=== PATIENT | female | born 1985 | race Caucasian/White ===

== ENCOUNTER 2018-05-10 15:50 | Inpatient (IN) | payer BC, OTHER ==
[~2018-05-10] VITALS: Ht 162.6 cm; Wt 40.8 kg
[~2018-05-10 15:50] MED LIST: Acetaminophen PO; CHLO25CA22 PO; FAMO-132 PO; Folic Acid PO; MULT-24 PO; THIA100T13 PO
[2018-05-10] MEDS ORDERED: LAMO100T2 PO (17:51)
[2018-05-10 17:53] LABS: *URINE HCG, QUAL NEGATIVE (NEGATIVE)
[2018-05-10] MEDS: MULTIVITAMINS,THERAPEUTIC TABLET PO SCH (18:00)
[2018-05-10] MEDS ORDERED: CLONIDINE HCL 0.1 MG TABLET PO PRN (18:00)
[2018-05-10] MEDS: THIAMINE HCL 100 MG TABLET PO SCH (18:00)
[2018-05-10] MEDS ORDERED: MAG HYDROX/AL HYDROX/SIMETH 30 ML LIQUID UDC PO PRN (18:00)
[2018-05-10] MEDS ORDERED: LORAZEPAM 2 MG/1 ML VIAL IM PRN (18:00)
[2018-05-10] MEDS ORDERED: LOPERAMIDE HCL 2 MG CAPSULE PO PRN ×2 (18:00)
[2018-05-10] MEDS: FOLIC ACID 1 MG TABLET PO SCH (18:00)
[2018-05-10] MEDS ORDERED: HYDROXYZINE PAMOATE 25 MG CAPSULE PO PRN (18:00)
[2018-05-10] MEDS ORDERED: IBUPROFEN 600 MG TABLET PO PRN (18:00)
[2018-05-10] MEDS ORDERED: ACETAMINOPHEN 325 MG TABLET PO PRN (18:00)
[2018-05-10] MEDS ORDERED: DIAZEPAM 10 MG TABLET PO PRN ×2 (18:00)
[2018-05-10] MEDS ORDERED: MIRALAX 17 GM POWD.PACK PO PRN (18:00)
[2018-05-10] MEDS ORDERED: ONDANSETRON 4 MG/2 ML VIAL IM PRN (18:00)
[2018-05-10] MEDS ORDERED: THIAMINE HCL 200 MG/2 ML VIAL IM ONE (18:00)
[2018-05-10] MEDS ORDERED: ONDANSETRON ODT 4 MG TAB.RAPDIS SL PRN (18:00)
[2018-05-10] MEDS ORDERED: DIAZEPAM 5 MG TABLET PO PRN (18:00)
[2018-05-10] MEDS ORDERED: MAGNESIUM HYDROXIDE 30 ML LIQUID UDC PO PRN (18:00)
[2018-05-10] MEDS: ENSURE WITH FIBER 237 ML LIQUID (CHOCOLATE) PO SCH (18:00)
[2018-05-10] MEDS ORDERED: THIAMINE HCL 100 MG TABLET PO SCH (18:15)
[2018-05-10] MEDS ORDERED: MULTIVITAMINS,THERAPEUTIC TABLET PO SCH (18:15)
[2018-05-10] MEDS ORDERED: Medication Not On Formulary EA ([Acetaminophen] 650 MG) PO PRN (18:15)
[2018-05-10] MEDS ORDERED: Medication Not On Formulary EA ([Folic Acid] 1 MG) PO SCH (18:15)
[2018-05-10 18:18] LABS: *AMPHETAMINE, URINE NEGATIVE (NEGATIVE); *BARBITURATE, URINE POSITIVE (NEGATIVE); *CANNABINOID, URINE NEGATIVE (NEGATIVE); *COCCAINE, URINE NEGATIVE (NEGATIVE); *OPIATE, URINE NEGATIVE (NEGATIVE); *PHENCYCLIDINE SCREEN,URINE NEGATIVE (NEGATIVE)
[2018-05-10 20:00] VITALS: BP 107/68
[2018-05-10] MEDS ORDERED: IV NORMAL SALINE 500 ML IV ONE (20:00)
[2018-05-10] MEDS: LAMOTRIGINE 100 MG TABLET PO SCH (22:21)
[2018-05-10 23:47] LABS: BASOPHILS % (AUTO) 0.5 % (0.0-2.0); EOSINOPHILS % (AUTO) 0.5 % (0.0-7.0); HEMATOCRIT 39.4 % (31.2-41.9); HEMOGLOBIN 13.6 g/dL (10.9-14.3); LYMPHOCYTES % (AUTO) 43.3 % (20.5-51.5); MEAN CORPUSCULAR HEMOGLOBIN 29.9 uug (24.7-32.8); MEAN CORPUSCULAR HGB CONC 35 g/dL (32.3-35.6); MEAN CORPUSCULAR VOLUME 86.3 fL (75.5-95.3); MONOCYTES # (AUTO) 0.5 K/uL (2.0-10.0); MONOCYTES % (AUTO) 11.6 % (0.0-11.0); NEUTROPHILS % (AUTO) 44.1 % (38.5-71.5); PLATELET COUNT (AUTO) 207 K/uL (179-408); RED BLOOD CELL COUNT(AUTO) 4.56 MIL/uL (3.63-4.92); WHITE BLOOD COUNT (AUTO) 4.6 K/uL (3.8-11.8)
[2018-05-11] VITALS: BP 112/77
[2018-05-11 00:03] LABS: CREATININE 0.8 mg/dL (0.6-1.3); POTASSIUM 2.9 mmol/L (3.5-5.1)
[2018-05-11 00:04] LABS: BILIRUBIN,TOTAL 0.7 mg/dL (0.2-1.0); MAGNESIUM 1.7 mg/dL (1.8-2.4); TOTAL PROTEIN, SERUM 9.1 g/dL (6.4-8.2)
[2018-05-11 00:12] LABS: THYROID STIMULATING HORMONE 0.519 mIU/mL (0.358-3.740)
[2018-05-11] MEDS ORDERED: POTASSIUM CHLORIDE 20 MEQ TAB.PRT.SR PO ONE (00:30)
[2018-05-11] MEDS ORDERED: MAGNESIUM OXIDE 400 MG TABLET PO ONE (00:30)
[2018-05-11] MEDS: diphenhydrAMINE 50 MG CAPSULE PO PRN ×2 (01:18→21:37)
[2018-05-11] MEDS: ENSURE WITH FIBER 237 ML LIQUID (CHOCOLATE) PO SCH ×3 (08:00→17:00)
[2018-05-11 08:54] VITALS: BP 106/78
[2018-05-11] MEDS: LAMOTRIGINE 100 MG TABLET PO SCH ×2 (08:57→21:37)
[2018-05-11] MEDS: THIAMINE HCL 100 MG TABLET PO SCH (08:58)
[2018-05-11] MEDS: FOLIC ACID 1 MG TABLET PO SCH (08:58)
[2018-05-11] MEDS: MULTIVITAMINS,THERAPEUTIC TABLET PO SCH (08:58)
[2018-05-11] MEDS: FAMOTIDINE 20 MG TABLET PO SCH (08:58)
[2018-05-11] MEDS ORDERED: TUBERCULIN,PURIF.PROT.DERIV. 5 TU/0.1 ML TEST ID ONE (09:00)
[2018-05-11] MEDS ORDERED: 3 DAY TAPER OF VALIUM-SERENITY PROTOCOL PO PRN (11:15)
[2018-05-11 12:20] VITALS: BP 97/72
[2018-05-11 13:32] LABS: BILIRUBIN,TOTAL 0.9 mg/dL (0.2-1.0); CREATININE 0.7 mg/dL (0.6-1.3); MAGNESIUM 1.8 mg/dL (1.8-2.4); POTASSIUM 4.3 mmol/L (3.5-5.1); TOTAL PROTEIN, SERUM 7.2 g/dL (6.4-8.2)
[2018-05-11] MEDS: DIAZEPAM 5 MG TABLET PO SCH ×2 (15:00→21:00)
[2018-05-11 16:00] VITALS: BP 127/87
[2018-05-11 20:09] VITALS: BP 108/66
[2018-05-12] VITALS: BP 118/85
[2018-05-12 08:00] VITALS: BP 114/76
[2018-05-12] MEDS: ENSURE WITH FIBER 237 ML LIQUID (CHOCOLATE) PO SCH ×2 (08:00→12:00)
[2018-05-12 08:07] LABS: HEPATITIS B SURFACE AG Negative (Negative)
[2018-05-12] MEDS ORDERED: DIAZEPAM 5 MG TABLET PO SCH (09:00)
[2018-05-12] MEDS: MULTIVITAMINS,THERAPEUTIC TABLET PO SCH (09:00)
[2018-05-12] MEDS: FAMOTIDINE 20 MG TABLET PO SCH (09:00)
[2018-05-12] MEDS: LAMOTRIGINE 100 MG TABLET PO SCH (09:02)
[2018-05-12] MEDS: THIAMINE HCL 100 MG TABLET PO SCH (09:02)
[2018-05-12] MEDS: FOLIC ACID 1 MG TABLET PO SCH (09:02)
[2018-05-12 12:00] VITALS: BP 134/97
[2018-05-12 16:00] VITALS: BP 92/55
[2018-05-13] MEDS ORDERED: DIAZEPAM 5 MG TABLET PO SCH (09:00)
== END 2018-05-12 17:02 | disposition home or self-care (01) | DRG 895 ==
LOC: SRC 15:50
PROVIDERS: ADMIT Family Medicine Addiction Medicine; ATTEND Family Medicine Addiction Medicine
PROC: HZ2ZZZZ Detoxification Services for Substance Abuse Treatment (ICD-10-PCS; principal; 2018-05-10)
PROC: HZ31ZZZ Individual Counseling for Substance Abuse Treatment, Behavioral (ICD-10-PCS; 2018-05-11)
PROC: HZ41ZZZ Group Counseling for Substance Abuse Treatment, Behavioral (ICD-10-PCS; 2018-05-11)
DX: F10.230 Alcohol dependence with withdrawal, uncomplicated (principal); G40.509 Epileptic seizures related to external causes, not intractable, without status epilepticus; F50.00 Anorexia nervosa, unspecified; F50.2 Bulimia nervosa; F31.81 Bipolar II disorder; Y90.6 Blood alcohol level of 120-199 mg/100 ml; R00.0 Tachycardia, unspecified; F41.1 Generalized anxiety disorder; E87.6 Hypokalemia; E83.42 Hypomagnesemia; E16.2 Hypoglycemia, unspecified; R74.0 Nonspecific elevation of levels of transaminase and lactic acid dehydrogenase [LDH]
CPT/HCPCS: 36415; 70030-TC; 80307; 80345; 80346; 83690; 83735; 84100; 84443; 84703; 85025; 86580; 86592; 86705; 86803; 87340; 87806; 93005; A4663; G0480; J7040; Q0163

== ENCOUNTER 2018-06-07 14:55 | Inpatient (IN) | payer MEDICARE, BC, OTHER ==
[~2018-06-07] VITALS: Ht 162.6 cm; Wt 43.5 kg
[~2018-06-07 14:55] MED LIST changes: -CHLO25CA22 PO; -FAMO-132 PO; +LAMO100T2 PO
[2018-06-08 08:30] VITALS: BP 104/69
[2018-06-08] MEDS: THIAMINE HCL 100 MG TABLET PO SCH (09:30)
[2018-06-08] MEDS ORDERED: MIRALAX 17 GM POWD.PACK PO PRN (09:30)
[2018-06-08] MEDS ORDERED: IBUPROFEN 600 MG TABLET PO PRN (09:30)
[2018-06-08] MEDS ORDERED: LORAZEPAM 2 MG/1 ML VIAL IM PRN (09:30)
[2018-06-08] MEDS ORDERED: ONDANSETRON ODT 4 MG TAB.RAPDIS SL PRN (09:30)
[2018-06-08] MEDS ORDERED: THIAMINE HCL 200 MG/2 ML VIAL IM ONE (09:30)
[2018-06-08] MEDS: MULTIVITAMINS,THERAPEUTIC TABLET PO SCH (09:30)
[2018-06-08] MEDS ORDERED: MAGNESIUM HYDROXIDE 30 ML LIQUID UDC PO PRN (09:30)
[2018-06-08] MEDS ORDERED: LOPERAMIDE HCL 2 MG CAPSULE PO PRN ×2 (09:30)
[2018-06-08] MEDS ORDERED: MAG HYDROX/AL HYDROX/SIMETH 30 ML LIQUID UDC PO PRN (09:30)
[2018-06-08] MEDS ORDERED: ACETAMINOPHEN 325 MG TABLET PO PRN (09:30)
[2018-06-08] MEDS ORDERED: diphenhydrAMINE 50 MG CAPSULE PO PRN (09:30)
[2018-06-08] MEDS ORDERED: ONDANSETRON 4 MG/2 ML VIAL IM PRN (09:30)
[2018-06-08] MEDS ORDERED: LORAZEPAM 0.5 MG TABLET PO PRN (09:30)
[2018-06-08] MEDS: FOLIC ACID 1 MG TABLET PO SCH (10:16)
[2018-06-08] MEDS: LEVETIRACETAM 500 MG TABLET PO SCH ×2 (10:16→20:44)
[2018-06-08] MEDS: LORAZEPAM 0.5 MG TABLET PO PRN ×2 (10:16→12:36)
[2018-06-08 12:00] VITALS: BP 121/76
[2018-06-08] MEDS ORDERED: 5 DAY TAPER OF LORAZEPAM -SERENITY PROTOCOL PO PRN (12:30)
[2018-06-08 13:05] LABS: BASOPHILS % (AUTO) 0.3 % (0.0-2.0); EOSINOPHILS % (AUTO) 0.3 % (0.0-7.0); LYMPHOCYTES # (AUTO) 0.9 K/uL (20.0-40.0); LYMPHOCYTES % (AUTO) 24.2 % (20.5-51.5); MEAN CORPUSCULAR HEMOGLOBIN 30.6 uug (24.7-32.8); MEAN CORPUSCULAR HGB CONC 34 g/dL (32.3-35.6); MEAN CORPUSCULAR VOLUME 88.9 fL (75.5-95.3); MONOCYTES # (AUTO) 0.2 K/uL (2.0-10.0); MONOCYTES % (AUTO) 4.4 % (0.0-11.0); NEUTROPHILS # (AUTO) 2.5 K/uL (1.8-8.9); NEUTROPHILS % (AUTO) 70.8 % (38.5-71.5); RED BLOOD CELL COUNT(AUTO) 3.47 MIL/uL (3.63-4.92)
[2018-06-08 13:08] LABS: HEMOGLOBIN 10.6 g/dL (10.9-14.3); WHITE BLOOD COUNT (AUTO) 3.5 K/uL (3.8-11.8)
[2018-06-08 13:09] LABS: HEMATOCRIT 30.8 % (31.2-41.9); PLATELET COUNT (AUTO) 82 K/uL (179-408)
[2018-06-08 13:15] LABS: ALANINE AMINOTRANSFERASE 57 U/L (14-59); ALKALINE PHOSPHATASE 72 U/L (50-136); AMYLASE 74 U/L (25-115); ASPARTATE AMINOTRANSFERASE 118 U/L (15-37); BILIRUBIN,TOTAL 0.8 mg/dL (0.2-1.0); CARBON DIOXIDE 27 mmol/L (21-32); CHLORIDE 96 mmol/L (98-107); CREATININE 0.7 mg/dL (0.6-1.3); ETHANOL < 3 MG/DL (0-0); GLUCOSE 101 mg/dL (74-106); LIPASE 164 U/L (73-393); MAGNESIUM 1.6 mg/dL (1.8-2.4); POTASSIUM 3.5 mmol/L (3.5-5.1); TOTAL PROTEIN, SERUM 7.2 g/dL (6.4-8.2); UREA NITROGEN, BLOOD 11 mg/dL (7-18)
[2018-06-08 13:26] LABS: THYROID STIMULATING HORMONE 1.499 mIU/mL (0.358-3.740)
[2018-06-08 13:38] LABS: BAND % (MANUAL) 2 % (0-10); LYMPHOCYTES % (MANUAL) 21 % (20-40); MONOCYTES % (MANUAL) 4 % (2-10); NEUTROPHILS % (MANUAL) 73 % (42-75)
[2018-06-08] MEDS ORDERED: MAGNESIUM OXIDE 400 MG TABLET PO ONE (14:15)
[2018-06-08 14:38] LABS: *URINE HCG, QUAL NEGATIVE (NEGATIVE)
[2018-06-08] MEDS: LORAZEPAM 0.5 MG TABLET PO SCH ×2 (14:39→20:44)
[2018-06-08 15:16] LABS: *BILIRUBIN,URIN NEGATIVE (NEGATIVE); *BLOOD, URINE Trace-lysed (NEGATIVE); *CLARITY,URINE SLIGHTLY CLOUDY (CLEAR); *COLOR,URINE YELLOW (YELLOW); *KETONES,URINE NEGATIVE (NEGATIVE); LEUKOCYTE ESTERASE ,URINE NEGATIVE (NEGATIVE); NITRITE, URINE NEGATIVE (NEGATIVE); PH,URINE >=9.0 (5.0-8.0); UGLUCOSE NEGATIVE (NEGATIVE)
[2018-06-08 15:25] LABS: BACTERIA,URINE MANY /HPF (NONE SEEN); MUCUS,URINE FEW /LPF (0-FEW); SQUAMOUS EPITHELIAL CELL,UR MODERATE /HPF (NONE SEEN); WBC,URINE 0-3 /HPF (0-3)
[2018-06-08 16:00] VITALS: BP 118/81
[2018-06-08 20:00] VITALS: BP 123/90
[2018-06-08] MEDS: HYDROXYZINE PAMOATE 25 MG CAPSULE PO PRN (22:19)
[2018-06-09] VITALS: BP 122/86
[2018-06-09 04:00] VITALS: BP 101/66
[2018-06-09 07:06] LABS: HEPATITIS B SURFACE AG Negative (Negative)
[2018-06-09 08:00] VITALS: BP 115/70
[2018-06-09 08:53] LABS: BASOPHILS % (AUTO) 0.8 % (0.0-2.0); EOSINOPHILS # (AUTO) 0.1 K/uL (0.0-0.7); EOSINOPHILS % (AUTO) 2.9 % (0.0-7.0); HEMATOCRIT 33.3 % (31.2-41.9); HEMOGLOBIN 11.5 g/dL (10.9-14.3); LYMPHOCYTES # (AUTO) 1.3 K/uL (20.0-40.0); LYMPHOCYTES % (AUTO) 42.3 % (20.5-51.5); MEAN CORPUSCULAR HEMOGLOBIN 30.6 uug (24.7-32.8); MEAN CORPUSCULAR HGB CONC 35 g/dL (32.3-35.6); MEAN CORPUSCULAR VOLUME 88.4 fL (75.5-95.3); MONOCYTES # (AUTO) 0.2 K/uL (2.0-10.0); NEUTROPHILS # (AUTO) 1.4 K/uL (1.8-8.9); PLATELET COUNT (AUTO) 81 K/uL (179-408); RED BLOOD CELL COUNT(AUTO) 3.77 MIL/uL (3.63-4.92); WHITE BLOOD COUNT (AUTO) 3.1 K/uL (3.8-11.8)
[2018-06-09] MEDS ORDERED: TUBERCULIN,PURIF.PROT.DERIV. 5 TU/0.1 ML TEST ID ONE (09:00)
[2018-06-09 09:02] LABS: BILIRUBIN,TOTAL 1.2 mg/dL (0.2-1.0); MAGNESIUM 2.1 mg/dL (1.8-2.4); POTASSIUM 3.6 mmol/L (3.5-5.1); TOTAL PROTEIN, SERUM 7.7 g/dL (6.4-8.2)
[2018-06-09] MEDS: THIAMINE HCL 100 MG TABLET PO SCH (09:13)
[2018-06-09] MEDS: LEVETIRACETAM 500 MG TABLET PO SCH ×2 (09:13→23:16)
[2018-06-09] MEDS: HYDROXYZINE PAMOATE 25 MG CAPSULE PO PRN (09:13)
[2018-06-09] MEDS: MULTIVITAMINS,THERAPEUTIC TABLET PO SCH (09:13)
[2018-06-09] MEDS: FOLIC ACID 1 MG TABLET PO SCH (09:13)
[2018-06-09] MEDS: LORAZEPAM 0.5 MG TABLET PO SCH ×4 (09:21→21:00)
[2018-06-09 12:00] VITALS: BP 114/87
[2018-06-09] MEDS ORDERED: LAMOTRIGINE 100 MG TABLET PO SCH (12:30)
[2018-06-09] MEDS: LAMOTRIGINE 25 MG TABLET PO SCH ×2 (13:24→17:01)
[2018-06-09] MEDS: CLONIDINE HCL 0.1 MG TABLET PO PRN (13:24)
[2018-06-09 17:00] VITALS: BP 109/81
[2018-06-09 20:00] VITALS: BP 117/87
[2018-06-10] VITALS: BP 116/86
[2018-06-10] MEDS: HYDROXYZINE PAMOATE 25 MG CAPSULE PO PRN ×3 (01:03→21:07)
[2018-06-10] MEDS: CLONIDINE HCL 0.1 MG TABLET PO PRN ×3 (01:03→21:08)
[2018-06-10 08:00] VITALS: BP 124/96
[2018-06-10] MEDS: LAMOTRIGINE 25 MG TABLET PO SCH ×2 (08:30→16:51)
[2018-06-10] MEDS: FOLIC ACID 1 MG TABLET PO SCH (08:30)
[2018-06-10] MEDS: LEVETIRACETAM 500 MG TABLET PO SCH ×2 (08:30→20:25)
[2018-06-10] MEDS: THIAMINE HCL 100 MG TABLET PO SCH (08:30)
[2018-06-10] MEDS: MULTIVITAMINS,THERAPEUTIC TABLET PO SCH (08:33)
[2018-06-10] MEDS: LORAZEPAM 0.5 MG TABLET PO SCH ×3 (08:33→20:25)
[2018-06-10 12:00] VITALS: BP 124/94
[2018-06-10 16:00] VITALS: BP 125/93
[2018-06-10 20:00] VITALS: BP 130/71
[2018-06-11] VITALS: BP 100/63
[2018-06-11 08:00] VITALS: BP 94/67
[2018-06-11] MEDS: FOLIC ACID 1 MG TABLET PO SCH (09:00)
[2018-06-11] MEDS ORDERED: LORAZEPAM 0.5 MG TABLET PO SCH (09:00)
[2018-06-11] MEDS: THIAMINE HCL 100 MG TABLET PO SCH (09:00)
[2018-06-11] MEDS: MULTIVITAMINS,THERAPEUTIC TABLET PO SCH (09:00)
[2018-06-11] MEDS: LEVETIRACETAM 500 MG TABLET PO SCH (09:12)
[2018-06-11] MEDS: LAMOTRIGINE 25 MG TABLET PO SCH (09:12)
[2018-06-11] MEDS: HYDROXYZINE PAMOATE 25 MG CAPSULE PO PRN (09:14)
[2018-06-11 12:00] VITALS: BP 107/80
[2018-06-11] MEDS ORDERED: LAMO25TA5 PO (14:36)
[2018-06-11] MEDS ORDERED: LEVE500T9 PO (14:36)
[2018-06-12] MEDS ORDERED: LORAZEPAM 0.5 MG TABLET PO SCH (09:00)
== END 2018-06-11 15:04 | DRG 895 ==
LOC: SRC 06-08 01:31
PROVIDERS: ADMIT Family Medicine Addiction Medicine; ATTEND Family Medicine Addiction Medicine
PROC: HZ2ZZZZ Detoxification Services for Substance Abuse Treatment (ICD-10-PCS; principal; 2018-06-08)
PROC: HZ31ZZZ Individual Counseling for Substance Abuse Treatment, Behavioral (ICD-10-PCS; principal; 2018-06-08)
PROC: HZ41ZZZ Group Counseling for Substance Abuse Treatment, Behavioral (ICD-10-PCS; 2018-06-09)
DX: F10.230 Alcohol dependence with withdrawal, uncomplicated (principal); G40.509 Epileptic seizures related to external causes, not intractable, without status epilepticus; F50.00 Anorexia nervosa, unspecified; Z68.1 Body mass index [BMI] 19.9 or less, adult; F50.2 Bulimia nervosa; Y90.8 Blood alcohol level of 240 mg/100 ml or more; F41.1 Generalized anxiety disorder; Z91.19 Patient's noncompliance with other medical treatment and regimen; F31.9 Bipolar disorder, unspecified
CPT/HCPCS: 36415; 70030-TC; 83690; 83735; 84443; 84703; 85025; 86592; 86705; 86803; 87340; 87806; A4663; G0480; J3411; Q0162; Q0163

== ENCOUNTER 2018-06-08 02:24 | Emergency (ER) | payer BC, OTHER ==
[~2018-06-08] VITALS: Ht 162.6 cm; Wt 45.4 kg
[2018-06-08] MEDS ORDERED: ONDANSETRON ODT 4 MG TAB.RAPDIS SL ONE (02:45)
[2018-06-08] MEDS ORDERED: LORAZEPAM 2 MG/1 ML VIAL IV ONE (02:45)
[2018-06-08] MEDS ORDERED: LORAZEPAM 0.5 MG TABLET PO ONE (02:45)
[2018-06-08] MEDS ORDERED: ASPIRIN 81 MG TAB.CHEW PO ONE (02:45)
[2018-06-08] MEDS ORDERED: NITROGLYCERIN OINT 1 GM PACKET TP ONE ×2 (02:45→03:07)
--- NOTE | 2018-06-08 02:45 | NUR ---
Pt. BIB staff @ [facility] for CP and palpitations, per pt. and friend she had CPR performed on her by her friend for "shallow respirations" and was taken to and discharged from [facility] earlier muriel, pt. reports drinking for 6 days straight,
[2018-06-08 02:51] LABS: BASOPHILS % (AUTO) 0.7 % (0.0-2.0); EOSINOPHILS % (AUTO) 0.5 % (0.0-7.0); HEMATOCRIT 35.6 % (31.2-41.9); HEMOGLOBIN 12.2 g/dL (10.9-14.3); LYMPHOCYTES # (AUTO) 1.6 K/uL (20.0-40.0); LYMPHOCYTES % (AUTO) 61.5 % (20.5-51.5); MEAN CORPUSCULAR HEMOGLOBIN 30.3 uug (24.7-32.8); MEAN CORPUSCULAR HGB CONC 34 g/dL (32.3-35.6); MONOCYTES # (AUTO) 0.1 K/uL (2.0-10.0); MONOCYTES % (AUTO) 4.4 % (0.0-11.0); NEUTROPHILS # (AUTO) 0.8 K/uL (1.8-8.9); NEUTROPHILS % (AUTO) 32.9 % (38.5-71.5); PLATELET COUNT (AUTO) 108 K/uL (179-408); RED BLOOD CELL COUNT(AUTO) 4.05 MIL/uL (3.63-4.92); WHITE BLOOD COUNT (AUTO) 2.6 K/uL (3.8-11.8)
[2018-06-08 03:01] LABS: *AMPHETAMINE, URINE NEGATIVE (NEGATIVE); *BARBITURATE, URINE NEGATIVE (NEGATIVE); *CANNABINOID, URINE NEGATIVE (NEGATIVE); *COCCAINE, URINE NEGATIVE (NEGATIVE); *OPIATE, URINE NEGATIVE (NEGATIVE); *PHENCYCLIDINE SCREEN,URINE NEGATIVE (NEGATIVE)
[2018-06-08 03:06] LABS: *URINE HCG, QUAL NEGATIVE (NEGATIVE)
[2018-06-08 03:06] LABS: BILIRUBIN,DIRECT 0.1 mg/dL (0.0-0.2); BILIRUBIN,TOTAL 0.4 mg/dL (0.2-1.0); POTASSIUM 3.5 mmol/L (3.5-5.1); TOTAL PROTEIN, SERUM 7.7 g/dL (6.4-8.2)
[2018-06-08] MEDS ORDERED: ASPIRIN 81 MG TAB.CHEW ONE (03:07)
[2018-06-08] MEDS ORDERED: ONDANSETRON ODT 4 MG TAB.RAPDIS ONE (03:08)
[2018-06-08] MEDS ORDERED: LORAZEPAM 1 MG TABLET ONE (03:08)
--- NOTE | 2018-06-08 03:16 | NUR ---
Called Rad. tech. for CXR
--- NOTE | 2018-06-08 03:18 | NUR ---
handling tech. at bedside for CXR
[2018-06-08 03:21] LABS: CREATININE 0.6 mg/dL (0.6-1.3)
--- NOTE | 2018-06-08 03:59 | NUR ---
Pt. resting in bed w/ eyes closed, awaiting lab results, NAD
--- NOTE | 2018-06-08 05:00 | NUR ---
oil burner technician. in w/ pt. for trop. lab draw,
--- NOTE | 2018-06-08 06:13 | NUR ---
Called [facility] to d/c pt. and admit back, per Mary unable to accept pt. until 729 when there is someone in admitting,
--- NOTE | 2018-06-08 06:59 | NUR ---
RECEIVED SHIFT REPORT FROM BENITO BECKMAN.
--- NOTE | 2018-06-08 07:00 | NUR ---
RECEIVED PT SLEEPING IN BED COMFORTABLY. DOES NOT APPEAR TO BE IN ANY APPARENT DISTRESS AT THIS TIME. VSS.
--- NOTE | 2018-06-08 07:53 | NUR ---
Patient discharged to home in stable conditon. Written and verbal after care instructions given. Patient verbalizes understanding of instructions. ALL BELONGINGS W/ PT. PT LEFT ER ON W/C ESCORTED BY [facility] STAFF MEMBER.
[2018-06-08 07:54] VITALS: BP 124/70
[2018-06-08 14:55] LABS: LYMPHOCYTES % (MANUAL) 57 % (20-40); MONOCYTES % (MANUAL) 3 % (2-10); NEUTROPHILS % (MANUAL) 40 % (42-75)
[2018-06-11] MEDS ORDERED: LEVE500T9 PO (14:36)
[2018-06-11] MEDS ORDERED: LAMO25TA5 PO (14:36)
== END 2018-06-08 08:00 | disposition home or self-care (01) ==
LOC: ER 02:26
DX: F41.9 Anxiety disorder, unspecified (principal); F10.239 Alcohol dependence with withdrawal, unspecified; F32.9 Major depressive disorder, single episode, unspecified; Z88.5 Allergy status to narcotic agent; Z79.899 Other long term (current) drug therapy; Y90.8 Blood alcohol level of 240 mg/100 ml or more
CPT/HCPCS: 36415; 71045; 80048; 80076; 80307; 83880; 84484 ×2; 84703; 85025; 93005; 99284; G0480; 70030-TC; A4663; Q0162